=== PATIENT | female | born 1970 | race Caucasian/White ===

== ENCOUNTER 2020-12-27 02:40 | Emergency (ER) | payer MEDICARE, MEDICAID ==
[~2020-12-27] VITALS: Ht 167.6 cm; Wt 66.0 kg
[~2020-12-27 02:40] MED LIST: DEXA4TAB PO; PHEN100C4 PO
[2020-12-27] MEDS ORDERED: LORAZEPAM 2MG/ML CPJ IV ONE (03:00)
[2020-12-27 03:35] LABS: BASOPHILS % 0.6 % (0.0-2.0); EOSINOPHILS % 1.2 % (0.0-5.0); HEMATOCRIT. 41.1 % (36.0-48.0); HEMOGLOBIN. 13.8 g/dL (12.0-16.0); LYMPHOCYTES % 33.7 % (20.0-50.0); MEAN CORPUSCULAR HEMOGLOBIN 31.5 pg (28.0-32.0); MEAN CORPUSCULAR VOLUME 93.8 fL (81.0-99.0); MEAN PLATELET VOLUME 8.9 fl (7.4-10.4); MONOCYTES % 7.7 % (2.0-8.0); NEUTROPHILS % 56.8 % (40.0-76.0); PLATELET 216 x1000/uL (130-400); RED BLOOD CELL COUNT 4.38 mill/uL (4.2-5.4); RED CELL DISTRIBUTION WIDTH 13.5 % (11.6-14.6)
[2020-12-27 03:42] LABS: CHLORIDE 105 mEq/L (98-107)
[2020-12-27 03:49] LABS: ETHANOL BLOOD < 10 mg/dL
[2020-12-27] MEDS ORDERED: KEPP500 MT (05:13)
[2020-12-27] MEDS ORDERED: LEVETIRACETAM 500MG/5ML CUP PO ONE (05:15)
[2020-12-27 06:13] VITALS: BP 123/74
== END 2020-12-27 06:15 | disposition home or self-care (01) ==
LOC: ER 02:40
DX: G40.909 Epilepsy, unspecified, not intractable, without status epilepticus (principal); Z00.00 Encounter for general adult medical examination without abnormal findings; I69.351 Hemiplegia and hemiparesis following cerebral infarction affecting right dominant side; Z98.890 Other specified postprocedural states
CPT/HCPCS: 36415; 70450; 80053; 80320; 85025; 96374; 99284; J2060; G0480

== ENCOUNTER 2023-06-16 05:49 | Emergency (ER) | payer MEDICARE, MEDICAID ==
[~2023-06-16] VITALS: Ht 165.1 cm; Wt 71.0 kg
[~2023-06-16 05:49] MED LIST changes: +KEPP500 MT
[2023-06-16 05:52] VITALS: O2SAT 98
[2023-06-16 06:40] LABS: BASOPHILS % 0.8 % (0.0-2.0); EOSINOPHILS % 0.3 % (0.0-5.0); HEMATOCRIT. 42.8 % (36.0-48.0); HEMOGLOBIN. 14.3 g/dL (12.0-16.0); LYMPHOCYTES % 13.3 % (20.0-50.0); MEAN CORPUSCULAR HEMOGLOBIN 31.9 pg (28.0-32.0); MEAN CORPUSCULAR HGB CONC 33.3 g/dL (31.0-37.0); MEAN CORPUSCULAR VOLUME 95.9 fL (81.0-99.0); MEAN PLATELET VOLUME 9.2 fl (7.4-10.4); MONOCYTES % 6.7 % (2.0-8.0); NEUTROPHILS % 78.9 % (40.0-76.0); PLATELET 197 x1000/uL (130-400); RED BLOOD CELL COUNT 4.47 mill/uL (4.2-5.4); RED CELL DISTRIBUTION WIDTH 13.6 % (11.6-14.6); WHITE BLOOD COUNT 4.5 x1000/uL (4.5-11.0)
[2023-06-16 06:54] LABS: AMMONIA < 17 uMol/L (<32)
[2023-06-16 06:55] LABS: ACETAMINOPHEN < 2 ug/mL (10-30); ALANINE AMINOTRANSFERASE 25 IU/L (10-49); ALBUMIN 4.2 g/dL (3.2-4.8); ASPARTATE AMINOTRANSFERASE 17 IU/L (<34); BILIRUBIN TOTAL 0.5 mg/dL (0.1-1.0); CALCIUM 8.3 mg/dL (8.7-10.4); CARBON DIOXIDE 22 mEq/L (21-32); CHLORIDE 108 mEq/L (98-107); CREATININE 0.7 mg/dL (0.6-1.0); GLUCOSE 140 mg/dL (70-105); POTASSIUM 3.8 mEq/L (3.5-5.1); PROTEIN TOTAL 7.1 g/dL (6.0-8.3); SODIUM 140 mEq/L (136-145); UREA NITROGEN BLOOD 13 mg/dL (9-23)
[2023-06-16 06:58] LABS: ETHANOL BLOOD < 10 mg/dL (<10)
[2023-06-16 13:05] VITALS: BP 117/62; PULSE 78; RESP 17; TEMP 98.4
[2023-06-16 13:27] LABS: *AMPHETAMINES SCREEN URINE NEGATIVE (NEGATIVE); *BARBITURATES SCREEN URINE NEGATIVE (NEGATIVE); *BENZODIAZEPINES SCREEN URINE PRESUMPTIVE POSITIVE (NEGATIVE); *COCAINE SCREEN URINE NEGATIVE (NEGATIVE); CANNABINOID URINE SCREEN NEGATIVE (NEGATIVE); ECSTASY MDMA SCREEN URINE NEGATIVE (NEGATIVE); METHADONE URINE SCREEN Neg (NEGATIVE); OPIATES URINE SCREEN NEGATIVE (NEGATIVE); PHENCYCLIDINE URINE SCREEN NEGATIVE (NEGATIVE)
== END 2023-06-16 13:06 | disposition home or self-care (01) ==
LOC: ER 05:55
DX: R56.9 Unspecified convulsions (principal)
CPT/HCPCS: 36415; 71045; 80053; 80305; 80307; 80320; 80329; 82140; 82962; 85025; 99285; G0480